=== PATIENT | female | born 1950 | race Caucasian/White ===

== ENCOUNTER → 2018-10-22 | Outpatient (CLI) | payer OTHER ==
[~2018-10-22] MED LIST: CELEBREX 200 M200 M1 PO; COUMADIN7.5 MG PO; FOLIC ACID1 MG PO; TEGRETOL200 MG PO
--- NOTE | 2018-10-22 08:15 | EKG ---
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: EVERT : 1950 Requested By: Miguel Guy Order Number: [id number] MD: Jorge Vásquez Measurements Intervals [place] Rate: 95 P: 89 [place]: 176 QRS: 36 QRSD: 63 T: 53 QT: 351 QTc: 442 Interpretive Statements Sinus rhythm Atrial premature complex Anteroseptal infarct, old Compared to ECG 05/11/2015 09:51:37 Atrial premature complex(es) now present Myocardial infarct finding now present Electronically Signed On 10-22-2018 8:15:39 CDT by Jorge Vásquez [email or web address] ��������������������������������������������� <ELECTRONICALLY SIGNED> ���������������������������������������� By: Jorge Vásquez MD ��������������������������������������������� 10/22/18 0815 0741 0741 Jorge Vásquez MD /EPI
== END | disposition home or self-care (01) ==
LOC: LITH 07:30
DX: N20.0 Calculus of kidney (principal); G47.33 Obstructive sleep apnea (adult) (pediatric); Z79.01 Long term (current) use of anticoagulants; Z87.19 Personal history of other diseases of the digestive system